=== PATIENT | female | born 1980 | race Caucasian/White ===

== ENCOUNTER 2017-10-03 00:03 | Emergency (ER) | payer MEDICAID ==
[~2017-10-03] VITALS: Ht 162.6 cm; Wt 89.1 kg
[2017-10-03 00:05] VITALS: BP 146/82
[2017-10-03 00:12] VITALS: BP 146/82
--- NOTE | 2017-10-03 00:13 | NUR ---
TO LOBBY, A/W BED, MARIA ESTHER, VSAidan, ERMMarie NOTED
--- NOTE | 2017-10-03 00:56 | NUR ---
PATIENT CALLED TO PUT ON BED, ADMITTING STAFF TOLD THAT SHE JUST LEFT AND FEELING BETTER ALREADY. PATIENT LEFT WITHOUT BEING SEEN BY DR. DIXON. NO FURTHER CARE PROVIDED FOR PATIENT.
== END 2017-10-03 00:56 | disposition left against medical advice (07) ==
LOC: MED 00:03
DX: R06.02 Shortness of breath (principal); Z53.21 Procedure and treatment not carried out due to patient leaving prior to being seen by health care provider

== ENCOUNTER 2018-01-25 22:15 | Emergency (ER) | payer MEDICAID, OTHER ==
[~2018-01-25] VITALS: Ht 157.5 cm; Wt 87.1 kg
[2018-01-25 22:19] VITALS: BP 122/71
--- NOTE | 2018-01-25 22:20 | NUR ---
BIBA TO BED 1
--- NOTE | 2018-01-25 22:21 | NUR ---
PT BIBA WITH C/O OF CHEST PAIN. PT WAS BENDING OVER WASHING THE TUB AND FELT PAIN IN HER CHEST. PT FELT SOME SOB DURING THAT TIME. SHE ALSO HAS SOME PAIN RADIATING TO HER PT HAS NO PAIN IN ER AT THIS TIME . PT RECIEVED NITRO, ASIRIN AND ZOFRAN PRIOR TO COMING INTO ER WITH [facility]. PT MEDICAL HX IS ASTHMA AND KNA. AT BEDSIDE.; SKIN IS PINK/WARM/DRY; AAOX4 WITH EVEN AND STEADY GAIT; LUNGS CLEAR BL; HR EVEN AND REGULAR; VSS; PATIENT POSITIONED FOR COMFORT; HOB ELEVATED; BEDRAILS UP X2; BED DOWN. ER MD MADE AWARE OF PT STATUS.
--- NOTE | 2018-01-25 23:01 | NUR ---
PT SITTING UP IN BED, AT BEDSIDE VITALS STABLE.
--- NOTE | 2018-01-25 23:20 | NUR ---
Patient discharged with v/s stable. Written and verbal after care instructions given and explained. Patient alert, oriented and verbalized understanding of instructions. Ambulatory with steady gait. All questions addressed prior to discharge. ID band removed. Patient advised to follow up with PMD. Rx of IBUPROFEN was given. Patient educated on indication of medication including possible reaction and side effects. Opportunity to ask questions provided and answered.
[2018-01-25 23:21] VITALS: BP 118/72
== END 2018-01-25 23:20 | disposition home or self-care (01) ==
LOC: MED 22:15
DX: M94.0 Chondrocostal junction syndrome [Tietze] (principal); J45.909 Unspecified asthma, uncomplicated
CPT/HCPCS: 93005; 99283